=== PATIENT | male | born 1975 | race Two or more races ===

== ENCOUNTER 2017-02-20 10:02 | Emergency (ER) | payer OTHER ==
[2017-02-20 10:27] VITALS: BP 110/65
--- NOTE | 2017-02-20 10:44 | UC ---
Skin Complaint HPI - HPI Summary HPI Summary: 41 male presents complaining of spider bite to his right shoulder that he sustained while sleeping 1 week ago. Patient states since then it has become, enlarged, red and swollen with discharge at times. Patient has been scratching at it due to itchiness. Patient has been apply hydrocortisone cream which he states thinks made it worse. It helped with itching for a short period of time. Also complains of surrounding swelling and enlarged veins. Patient denies fever/ chills, tick bite, headache, arthralgias, nausea and vomiting. - History of Current Complaint Chief Complaint: UCSkin Time Seen by Provider: 02/20/17 10:17 Stated Complaint: RED SWOLLEN BUG BITE Hx Obtained From: Patient Onset/Duration: Sudden Onset, Lasting Weeks - 1, Worse Since Skin Exposure Onset/Duration: Weeks Ago - 1 Timing: Constant Onset Severity: Mild Current Severity: Mild Pain Intensity: 2 Pain Scale Used: 0-10 Numeric Location: Other - right shoulder Character: Swelling, Pruritus, Redness, Raised, Painful Aggravating: Showering, Touch Alleviating: Nothing Associated Signs & Symptoms: Positive: Rash - surrounding bite, Red Streaks Related History: Insect Bite/Sting - Allergy/Home Medications Allergies/Adverse Reactions: Allergies Allergy/AdvReac Type Severity Reaction Status Date / Time No Known Allergies Allergy Verified 07/25/16 07:57 Review of Systems Constitutional: Negative Skin: Rash, Other - insect bite Respiratory: Negative Cardiovascular: Negative Neurovascular: Negative Musculoskeletal: Negative Neurological: Negative All Other Systems Reviewed And Are Negative: Yes PMH/Surg Hx/FS Hx/Imm Hx Cardiovascular History Of: Denies: Hypertension, Pacemaker/ICD Respiratory History Of: Denies: Asthma - Surgical History Surgical History: Yes Surgery Procedure, Year, and Place: ACL RECONSTRUCTION right knee-2005 [facility] - Family History Known Family History: Positive: None - Social History Alcohol Use: Weekly Alcohol Amount: 1-2 PER WEEK Substance Use Type: Marijuana Substance Use Comment - Amount & Last Used: MARIJUANA-LAST USED 1 WEEK AGO Smoking Status (MU): Former Smoker Amount Used/How Often: 4-5 CIGARETTES PER DAY X 20 YEARS AGO Have You Smoked in the Last Year: No When Did the Patient Quit Smoking/Using Tobacco: 2 YEARS AGO Physical Exam Triage Information Reviewed: Yes Appearance: Well-Appearing, No Pain Distress, Well-Nourished Vital Signs: Initial Vital Signs Temp 98.2 F 05/16/17 10:16 Pulse 56 02/20/17 10:16 Resp 18 02/20/17 10:16 BP 110/65 02/20/17 10:16 Pulse Ox 100 02/20/17 10:16 Vital Signs Reviewed: Yes Eyes: Positive: Conjunctiva Clear ENT: Positive: Normal ENT inspection, Hearing grossly normal, Pharynx normal Neck: Positive: Supple, Nontender Respiratory: Positive: Chest non-tender, Lungs clear, Normal breath sounds, No respiratory distress, No accessory muscle use Cardiovascular: Positive: RRR, No Murmur, Pulses Normal Musculoskeletal: Positive: Strength Intact, ROM Intact Neurological Exam: Normal Neurological: Positive: Alert Skin: Positive: significant lesion(s) - infected insect bite, erythema without discharge at this time at right anterior shoulder by axilla. surrounding erythema and firm edema representing cellulitis approximately 3 cm in diameter, questionable mild lymphangitis surrounding bite in axilla. no discharge to culture at this time. no abscess formation. Course/Dx - Course Course Of Treatment: due to PE findings and length of symptoms will give Keflex. Recommend benedryl anti itch relief and calamine lotion, since patient believe hydrocortisone made his symptoms worse. No discharge available to culture. Aware of worsening signs and symptoms to watch out for. Keep clean, stop scratching. Follow up with PCP. - Differential Diagnoses - Skin Complaint Differential Diagnoses: Allergic Reaction, Anaphylaxis, Cellulitis, Contact Dermatitis, Tick Born Illness, Tinea, Other - Diagnoses Provider Diagnoses: cellulitis, insect bite Discharge - Discharge Plan Condition: Stable Disposition: HOME Prescriptions: Cephalexin CAP* [Keflex CAP*] 500 mg PO TID #21 cap Patient Education Materials: Cellulitis (ED) Referrals: Beth Nesbitt MD [Primary Care Provider] - Additional Instructions: Take prescribed antibiotic as directed until entire dose is finished. Give 3-5 days for improvement. Use over the counter Benedryl anti itch relief cream and Calamine lotion at bedtime to help with itching. You may also want to try taking antihistamine such as Claritin over the counter for the next couple of days to help with swelling and itching. Try not to scratch area. Keep clean and dry. Cool compresses may help soothe area and decrease swelling. Follow up with PCP. Return if symptoms worsen or new symptoms develop.
== END 2017-02-20 11:01 | disposition home or self-care (01) ==
LOC: UCEAST 10:02
DX: S40.261A Insect bite (nonvenomous) of right shoulder, initial encounter (principal); L03.113 Cellulitis of right upper limb; W57.XXXA Bitten or stung by nonvenomous insect and other nonvenomous arthropods, initial encounter; Y93.9 Activity, unspecified; Y92.9 Unspecified place or not applicable; F12.90 Cannabis use, unspecified, uncomplicated; Z87.891 Personal history of nicotine dependence
CPT/HCPCS: 99212; G0463

== ENCOUNTER 2018-04-07 12:37 | Emergency (ER) | payer OTHER ==
--- OUTSIDE RECORDS SUMMARY | 2018-04-07 12:43 | XMS REPORT ---
:1975 External Reference #:[id number] Author Organization [facility] Address [address] [place] [address] [place] [address] Phone [phone] Care Team Providers Name Role Phone Beth Nesbitt MD Primary Care Physician Unavailable Payers Type Date Identification Numbers Payment Provider Subscriber Commercial Policy Number: [id number] [facility] Jayda Powell Group Number: [id number] [address] PayID: [id number] [place] [address] Medigap Part B Expires: 2010 Policy Number: [employer] Jayda Powell [id number] Group Number: [id number] [address] PayID: [id number] [place] [address] Problems Description No Active Problems Family History Date Family Member(s) Problem(s) Comments General No Current Problems : (age Father due to Had dementia, was 77 Years) Accidental hospitalized, wandered and fell off the roof Father Parkinson's Disease Lewy body dementia Mother Alive And Well living at age 64 Siblings 1 First Sister Alive And Well 1/2 sister on father's side Maternal Grandmother Diabetes maternal grandparent Social History Type Date Description Comments Marital Status Significant 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 Smoked about 5 cigarettes per day Exercise Type/Frequency Exercises regularly General Hx Text Born in [place], lived there as a small child, raised in [place], [place], other places Allergies, Adverse Reactions, Alerts Date Description Reaction Status Severity Comments 01/06/2016 NKDA active Medications Medication Date Status Form Strength Qnty SIG Indications Ordering Provider No Active Active Unknown Medications 016 [place] Hx Tablets 5-325mg 40tabs one to Iman 016 - two tabhiren Barnett M.D. by mouth 016 every 4-6 hours as needed pain No Active Hx Unknown Medications 016 - 016 Ultracet Hx Tablets 37.5-325mg 30tabs 1-2 tabs Iman 016 - by mouth Andrew Barnett every 016 4-6 hours as needed pain No Active Hx Unknown Medications 016 - 016 Medications Administered in Office Medication Date Status Form Strength Qnty SIG Indications Ordering Provider Depomedrol Administered Injection Iman 40MG 016 Andrew Barnett Immunizations CPT Code Status Date Vaccine Lot # [id number] Given 01/06/2016 Tdap - Tetanus/Diptheria/Acellular Pertussis [id number] Vital Signs Date Vital Result Comment 03/28/2018 Height 72 inches 6'0" Weight 144.00 lb Heart Rate 68 /min BP Systolic Sitting 123 mmHg BP Diastolic Sitting 76 mmHg O2 % BldC Oximetry 98 % BMI (Body Mass Index) 19.5 kg/m2 10/30/2016 Height 72 inches 6'0" Weight 142.00 lb Respiratory Rate 19 /min Pain Level 1 BMI (Body Mass Index) 19.3 kg/m2 09/18/2016 Height 72 inches 6'0" Weight 142.00 lb Pain Level 0 BMI (Body Mass Index) 19.3 kg/m2 08/07/2016 Height 72 inches 6'0" Weight 142.00 lb Heart Rate 67 /min BP Systolic Sitting 103 mmHg BP Diastolic Sitting 61 mmHg Pain Level 3 BMI (Body Mass Index) 19.3 kg/m2 07/07/2016 Height 72 inches 6'0" Weight 142.00 lb Pain Level 0 BMI (Body Mass Index) 19.3 kg/m2 06/19/2016 Height 72 inches 6'0" Weight 142.50 lb Heart Rate 60 /min BP Systolic Sitting 96 mmHg BP Diastolic Sitting 64 mmHg Respiratory Rate 16 /min Pain Level 0 BMI (Body Mass Index) 19.3 kg/m2 02/09/2016 Height 72 inches 6'0" Weight 145.00 lb Pain Level 0 BMI (Body Mass Index) 19.7 kg/m2 01/26/2016 Height 72 inches 6'0" Weight 145.00 lb Heart Rate 64 /min BP Systolic Sitting 114 mmHg BP Diastolic Sitting 62 mmHg Respiratory Rate 16 /min Pain Level 8 on the right BMI (Body Mass Index) 19.7 kg/m2 01/06/2016 Height 72 inches 6'0" Weight 142.50 lb Heart Rate 57 /min BP Systolic Sitting 99 mmHg BP Diastolic Sitting 64 mmHg Body Temperature 97.5 F Pain Level 7 O2 % BldC Oximetry 99 % BMI (Body Mass Index) 19.3 kg/m2 Results Test Date Test Result H/L Range Note Lipid Profile (Trig/Chol/HDL) 03/22/2018 Triglycerides 60 mg/dL 1 Cholesterol 218 mg/dL 2 HDL Cholesterol 55.9 mg/dL 3 LDL Cholesterol 150 mg/dL 4 Laboratory test finding 03/22/2018 Glucose 89 mg/dL 70-100 5 Laboratory test finding 06/23/2016 Surgical Pathology SEE RESULT BELOW 6, 7 Lipid Profile 01/06/2016 Triglycerides 66 mg/dL 8 (Trig/Chol/HDL) Cholesterol 229 mg/dL 9 HDL Cholesterol 54.8 mg/dL 10 LDL Cholesterol 161 mg/dL 11 Laboratory test finding 01/06/2016 Glucose 90 mg/dL 70-100 12 1 Desirable: <150 Borderline High: 150-199 High: 200-499 Very High: >500 2 Desirable: <200 Borderline High: 200-239 High: >239 3 Low: <40 Desirable: 40-60 High: >60 4 Desirable: <100 Near Optimal: 100-129 Borderline High: 130-159 High: 160-189 Very High: >189 5 FASTING 10 HOUR 6 [id number] SEE RESULT BELOW Name: JAYDA POWELL : [address]: Iman Barnett MD Acct: [id number] Unit: [id number] AGE: 41 Location: [facility] Re06/23/16 SEX: M Status: REG SD SPEC: [id number] MADHAV: 06/23/16-[address] [facility] [address]: Iman Barnett MD REQ: [id number] RECD: 06/23/16 STATUS: SOUT _ ORDERED: LEVEL III COMMENTS: [id number] FINAL DIAGNOSIS Wrist, left, excision: -- Ganglion cyst. PRE-OPERATIVE DIAGNOSIS Ganglion left wrist GROSS DESCRIPTION The specimen is received in formalin labeled, Left Wrist Ganglion Cyst, and consists of a 1.8 x 1.3 x 0.7 cm, lang-white, irregular, wrinkled and rubbery, fibrous tissue fragment. The specimen is serially sectioned and entirely submitted in one cassette. Signed (signature on file) Evelyn To MD 1139 END OF REPORT * ML=Testing performed at Main Lab DEPARTMENT OF PATHOLOGY, [address] [place] [address] Anibal Aguiar M.D. Director [facility] # [id number] Desirable <150 Borderline high 150-199 High 200-499 Very High >500 9 Desirable <200 Borderline high 200-239 High >239 10 Low <40 Desirable: 40-60 High: >60 11 Desirable: <100 mg/dL Near Optimal: 100-129 mg/dL Borderline High: 130-159 mg/dL High: 160-189 mg/dL Very High: >189 mg/dL 12 FASTING 12 HOUR Procedures Date CPT Code Description Status 08/07/2016 06963 Short Arm Cast Application Completed 07/25/2016 16379 open tx carpar scaphoid fx incl internal fixation when Completed performed 07/25/2016 56546 open tx carpar scaphoid fx incl internal fixation when Completed performed 07/25/2016 Bone Graft Any Donor Area Minr Or SM (Eg Dowel Or Completed Button) 07/25/2016 Bone Graft Any Donor Area Minr Or SM (Eg Dowel Or Completed Button) 06/23/2016 Excision Ganglion Wrist/ Dorsal Or Volar; Primary Completed 06/23/2016 Excision Ganglion Wrist/ Dorsal Or Volar; Primary Completed 01/26/2016 Aspiration &/Or Inj Of Ganglion Cyst(S) Any Location Completed Encounters Type Date Location Provider CPT E/M Dx Office Visit 10/30/2016 [facility] Iman Barnett 20039 S62.001K 11:15a Of [facility] Mor[facility] Office Visit 02/09/2016 [facility] Iman Barnett 87538 S62.021K 4:10p Of Louise Morales M67.432 Office Visit 01/26/2016 3:00p [facility] Iman Barnett 13387 S62.021K Of Louise Morales M67.432 Office Visit 01/06/2016 10:40a [facility] Internal Medicine Beth Nesbitt 50739 Z00.00 - Cailin Morales Z83.3 M67.432 Z23 Office Visit 07/11/2010 2:00p [facility] Of Wesley Allred M.D. 08138 836.0 C.MAr Plan of Care 03/28/2018 - Beth Nesbitt M.D.Z00.00 Encntr for general adult medical exam w/o abnormal findingsComments:VACCINES:Flu shot every year in the fall.Tetanus: done in 2016, booster every 10 years, earlier if major injurySCREENING: Cholesterol - just checked - better this year than in 2016Prostate cancer screening: guidelines have changed - consider PSA at age 55Testicular cancer: self exam in the shower - check for lumpsColon cancer screening: starts at age 50HIV screening: recommended for all adults ADVANCE DIRECTIVE:It would be good for us to have a copy of your health care proxy and advanced directiveon file here.Follow up:2 yr
[2018-04-07 12:44] VITALS: BP 106/70
[2018-04-07] MEDS ORDERED: Lidocaine 1%* 5 ML VIAL INJ ONE (12:49)
--- NOTE | 2018-04-07 12:51 | UC ---
Laceration HPI - HPI Summary HPI Summary: 42 y/o male presents to the urgent care c/o cutting his left ring finger w/ a knife at home s/p cutting an avocado at 1220pm today. Bleeding stopped w/ pressure, but returns when he moves finger. Pain is 8/10. can move finger w/o any difficulty. Pt is UTD w/ Tetanus vaccine 3 years ago. Pt denies numbness or tinglin sensation over the finger, SOB, chest pain, abdominal pain, N/V/D - History Of Current Complaint Chief Complaint: UCLaceration Stated Complaint: CUT LEFT HAND Time Seen by Provider: 04/07/18 12:48 Hx Obtained From: Patient Laceration Location: Finger - left 4th finger Mechanism Of Injury: Sharp Trauma Onset/Duration: Sudden Onset - 30min, Lasting Minutes Severity: Moderate Pain Intensity: 8 Pain Scale Used: 0-10 Numeric Aggravating Factors: Movement Related History: Dominant Hand Right - Allergies/Home Medications Allergies/Adverse Reactions: Allergies Allergy/AdvReac Type Severity Reaction Status Date / Time No Known Allergies Allergy Verified 04/07/18 12:45 PMH/Surg Hx/FS Hx/Imm Hx Previously Healthy: Yes - Pt denies PMHX - Surgical History Surgical History: Yes Surgery Procedure, Year, and Place: ACL RECONSTRUCTION right knee-2005 [facility] - Family History Known Family History: Positive: Diabetes - Social History Occupation: Employed Full-time Lives: With Family Alcohol Use: Occasionally Alcohol Amount: 1-2 PER WEEK Substance Use Type: Marijuana Substance Use Comment - Amount & Last Used: MARIJUANA-LAST USED 1 WEEK AGO Smoking Status (MU): Former Smoker Amount Used/How Often: 4-5 CIGARETTES PER DAY X 20 YEARS AGO Have You Smoked in the Last Year: No When Did the Patient Quit Smoking/Using Tobacco: 2 YEARS AGO - Immunization History Hx Tetanus, Diphtheria Vaccination: Yes - 3 years ago Review of Systems Constitutional: Negative Skin: Other - laceration of left ring finger w/ a knife Eyes: Negative ENT: Negative Respiratory: Negative Cardiovascular: Negative Gastrointestinal: Negative Genitourinary: Negative Motor: Negative Neurovascular: Negative Musculoskeletal: Other: - left ring finger pain s/p laceration Neurological: Negative Psychological: Negative Is Patient Immunocompromised?: No All Other Systems Reviewed And Are Negative: Yes Physical Exam - Summary Physical Exam Summary: Vital Signs Reviewed: Yes General: well developed, well nourished male sitting in the examining table w/o any apparent distress Eye Exam: Normal Eyes: Positive: Conjunctiva Clear - PERRLA, EOMI, fundi grossly normal ENT: Positive: Normal ENT inspection, Hearing grossly normal, Pharynx normal, TMs normal Neck: Positive: Supple, Nontender, No Lymphadenopathy Respiratory: Positive: Chest non-tender, Lungs clear, Normal breath sounds, No respiratory distress Cardiovascular: Positive: RRR, No Murmur, Pulses Normal, Brisk Capillary Refill Abdomen Description: Positive: Nontender, No Organomegaly, Soft. Negative: CVA Tenderness (R), CVA Tenderness (L) Bowel Sounds: Positive: Present Musculoskeletal: Positive: Strength Intact, ROM Intact, No Edema Neurological: Positive: Alert, Muscle Tone Normal Psychological Exam: Normal Skin: Positive:medial aspect at the base of left 4th phalanx with a linear superficial laceration about 1.8cm in size, bleeding, no foreign body observed. mild tenderness to palpation, no swelling. FROM of left 4th phalanx and hand, sensation intact, capillary refill brisk, and pulses WNL. Triage Information Reviewed: Yes Vital Signs: Initial Vital Signs Temp 98.5 F 04/07/18 12:41 Pulse 59 04/07/18 12:41 Resp 12 04/07/18 12:41 BP 106/70 04/07/18 12:41 Pulse Ox 98 04/07/18 12:41 Laceration Repair - Laceration Repair 1 Description: Linear Laceration Size After Repair: Length (cm) - 1.8cm Modified For Repair: No Type Injection: Local Anesthesia Used: 1.0% Lido - 3ml Cleansing Completed Via Routine Prep: Yes Irrigation With Pressure Irrigation Device: Yes Closure Material: Sutures - 7 Closure Method: Single Layer Suture Of: Skin, SQ Suture Type: Nylon - 5.0 Laceration Course/Dx - Course/Dx Course Of Treatment: 42 y/o male presents to the urgent care c/o cutting his left ring finger w/ a knife at home s/p cutting an avocado at 1220pm today. Bleeding stopped w/ pressure, but returns when he moves finger. Pain is 8/10. can move finger w/o any difficulty. Pt is UTD w/ Tetanus vaccine 3 years ago. Pt denies numbness or tinglin sensation over the finger, SOB, chest pain, abdominal pain, N/V/D. Hx obtained. LACERATION PROCEDURE NOTE: . Copious irrigation was done with saline by the nurse and the wound explored. There was no FB or deep structure injury noted. FROM of left hand and left 4th phalanx. procedure was explained and consent obtained, Timeout performed. The wound was anesthetized with 3 mL of 1% lido with good anesthesia. Sterile drape and prep were don. There were 7 sutures with 5.0 nylon type of suture. The length of the wound after closure was 1.8cm. No debridement done. Wound was covered bacitracin with sterile non adherent dressing. The Pt tolerated the procedure well without adverse effects. Neurovascular intact and FROM. Tdap ordered and applied by nurse. Pt advised to f/u suture removal in 10-12 days and if any signs of infection develop to immediately return to the urgent care of PCP for further management and treatment. Pt understood and agreed and left the clinic ambulating A&Ox3. - Differential Dx - Laceration/Wound Differental Diagnoses: Abrasion, Dehiscence, Laceration, Puncture Wound, Tendon Laceration Provider Diagnoses: 1- left 4th phalanx laceration repair Discharge - Sign-Out/Discharge Documenting (check all that apply): Discharge/Admit/Transfer - D/c home - Discharge Plan Condition: Stable Disposition: HOME Prescriptions: Bacitracin OINTMENT* 1 applic TOPICAL BID #1 tube Ibuprofen TAB* [Motrin TAB* 600 MG] 600 mg PO Q6H PRN #30 tab PRN Reason: Pain Patient Education Materials: Care For Your Stitches (ED), Laceration (ED) Referrals: Beth Nesbitt MD [Primary Care Provider] - 1 Week Additional Instructions: 1-Please apply topical antibiotic over the wound. Keep wound clean and dry 2- F/u suture removal in 10-12 days days w/ your PCP or here at the urgent care. 3-Take Ibuprofen PO q6-8hrs prn for pain or swelling. 4- If you develop fever or redness around your finger despite the antibiotic please go to the ER immediately or return to the Urgent care. - Billing Disposition and Condition Condition: STABLE Disposition: Home
== END 2018-04-07 13:43 | disposition home or self-care (01) ==
LOC: UCEAST 12:37
DX: S61.215A Laceration without foreign body of left ring finger without damage to nail, initial encounter (principal); W26.0XXA Contact with knife, initial encounter; Y93.9 Activity, unspecified; Y99.9 Unspecified external cause status
CPT/HCPCS: 12001; 99211; G0463

== ENCOUNTER 2018-04-20 11:59 | Emergency (ER) | payer OTHER ==
[2018-04-20 12:15] VITALS: BP 101/59
--- NOTE | 2018-04-20 12:25 | UC ---
HPI Wound/Suture Re-check - HPI Summary HPI Summary: sutures placed in left 4th finger 14 days ago----heeling well some numbness continues - History Of Current Complaint Chief Complaint: UCSkin Stated Complaint: STITCH REMOVAL Time Seen by Provider: 04/20/18 12:06 Hx Obtained From: Patient Onset/Duration: Sudden Onset, Lasting Weeks - 2, Resolved Surgical Site: left 4th finger Pain Intensity: 3 Pain Scale Used: 0-10 Numeric - Allergies/Home Medications Allergies/Adverse Reactions: Allergies Allergy/AdvReac Type Severity Reaction Status Date / Time No Known Allergies Allergy Verified 04/20/18 12:15 PMH/Surg Hx/FS Hx/Imm Hx Previously Healthy: Yes - Surgical History Surgical History: Yes Surgery Procedure, Year, and Place: ACL RECONSTRUCTION right knee-2005 [facility] - Family History Known Family History: Positive: None, Diabetes - Social History Occupation: Employed Full-time Lives: With Family Alcohol Use: Occasionally Alcohol Amount: 1-2 PER WEEK Substance Use Type: Marijuana Substance Use Comment - Amount & Last Used: MARIJUANA-LAST USED 1 WEEK AGO Smoking Status (MU): Former Smoker Amount Used/How Often: 4-5 CIGARETTES PER DAY X 20 YEARS AGO Have You Smoked in the Last Year: No When Did the Patient Quit Smoking/Using Tobacco: 2 YEARS AGO - Immunization History Hx Tetanus, Diphtheria Vaccination: Yes - 3 years ago Review of Systems Constitutional: Negative Skin: Other - healing wound left 4th finger Eyes: Negative ENT: Negative Respiratory: Negative Cardiovascular: Negative Gastrointestinal: Negative Genitourinary: Negative Motor: Negative Neurovascular: Negative Musculoskeletal: Negative Neurological: Negative Psychological: Negative Is Patient Immunocompromised?: No All Other Systems Reviewed And Are Negative: Yes Physical Exam Triage Information Reviewed: Yes Appearance: Well-Appearing, No Pain Distress, Well-Nourished Vital Signs: Initial Vital Signs Temp 98.7 F 04/20/18 12:12 Pulse 67 04/20/18 12:12 Resp 18 04/20/18 12:12 BP 101/59 04/20/18 12:12 Pulse Ox 100 04/20/18 12:12 Vital Signs Reviewed: Yes Eye Exam: Normal Eyes: Positive: Conjunctiva Clear ENT Exam: Normal ENT: Positive: Normal ENT inspection, Hearing grossly normal, Pharynx normal. Negative: Nasal drainage, TMs normal, Trismus, Muffled voice, Hoarse voice, Dental tenderness, Sinus tenderness Dental Exam: Normal Neck exam: Normal Neck: Positive: Supple, Nontender Respiratory Exam: Normal Respiratory: Positive: Chest non-tender, No respiratory distress, No accessory muscle use Cardiovascular Exam: Normal Cardiovascular: Positive: RRR, Pulses Normal, Brisk Capillary Refill Musculoskeletal Exam: Normal Musculoskeletal: Positive: Strength Intact, ROM Intact, No Edema Neurological Exam: Normal Neurological: Positive: Alert, Muscle Tone Normal Psychological Exam: Normal Psychological: Positive: Normal Response To Family Skin Exam: Normal Course/Dx - Course Course Of Treatment: sutures removed patient donte well follow with pcp for continue numbness and any further issues - Differential Dx - Laceration/Wound Provider Diagnoses: suture removal left 4th finger Discharge - Sign-Out/Discharge Documenting (check all that apply): Patient Departure - Discharge Plan Condition: Stable Disposition: HOME Patient Education Materials: Stitches Removal (ED) Referrals: Beth Nesbitt MD [Primary Care Provider] - If Needed - Billing Disposition and Condition Condition: STABLE Disposition: Home
== END 2018-04-20 12:35 | disposition home or self-care (01) ==
LOC: UCEAST 11:59
DX: S61.215D Laceration without foreign body of left ring finger without damage to nail, subsequent encounter (principal); X58.XXXD Exposure to other specified factors, subsequent encounter; Z87.891 Personal history of nicotine dependence